=== PATIENT | female | born 1970 | race Hispanic/Latino ===

== ENCOUNTER 2021-09-25 17:21 | Emergency (ER) | payer OTHER ==
[~2021-09-25] VITALS: Ht 154.9 cm; Wt 76.4 kg
[~2021-09-25 17:21] MED LIST: CYCLOBENZAPR10 MG PO; FLEXERIL PO; FLEXERIL5 MG PO; NAPROSYN375 MG PO; NAPROSYN500 MG PO; NO HOME MEDS; PERCOCET 5/325M1 TAB PO; UNKNOWN ALLERGY MED; UNKNOWN ANTIBIOTIC
[2021-09-25 17:33] VITALS: BP 129/75
[2021-09-25 18:10] LABS: URINE BILIRUBIN - DIPSTICK NEGATIVE (NEGATIVE); URINE BLOOD DIPSTICK NEGATIVE (NEGATIVE); URINE COLOR YELLOW; URINE GLUCOSE - DIPSTICK NEGATIVE (NEGATIVE); URINE KETONE NEGATIVE (NEGATIVE); URINE LEUK ESTERASE NEGATIVE (NEGATIVE); URINE PROTEIN - DIPSTICK NEGATIVE (NEG-TRACE); URINE UROBILINOGEN - DIPSTICK 0.2 E.U./dL (0.2)
[2021-09-25 18:11] LABS: URINE NITRITE - DIPSTICK NEGATIVE (Negative)
[2021-09-25 18:56] VITALS: BP 129/75
[2021-09-25] MEDS ORDERED: METHOCARBAMOL500 MG PO (19:56)
[2021-09-25] MEDS ORDERED: NAPROXEN500 MG PO (19:56)
== END 2021-09-25 20:17 | disposition home or self-care (01) | DRG 563 ==
LOC: ED 17:21
PROVIDERS: Nurse Practitioner
DX: S39.012A Strain of muscle, fascia and tendon of lower back, initial encounter (principal); X58.XXXA Exposure to other specified factors, initial encounter; Y93.E9 Activity, other interior property and clothing maintenance; Y99.0 Civilian activity done for income or pay

== ENCOUNTER 2022-07-04 21:07 | Emergency (ER) | payer OTHER ==
[~2022-07-04] VITALS: Ht 154.9 cm; Wt 81.6 kg
[~2022-07-04 21:07] MED LIST changes: +METHOCARBAMOL500 MG PO; +NAPROXEN500 MG PO
[2022-07-04 21:50] LABS: URINE BILIRUBIN - DIPSTICK NEGATIVE (NEGATIVE); URINE BLOOD DIPSTICK NEGATIVE (NEGATIVE); URINE COLOR YELLOW; URINE GLUCOSE - DIPSTICK NEGATIVE (NEGATIVE); URINE KETONE NEGATIVE (NEGATIVE); URINE LEUK ESTERASE NEGATIVE (NEGATIVE); URINE PH 5.5 (4.5-8.0); URINE PROTEIN - DIPSTICK NEGATIVE (NEG-TRACE); URINE SPECIFIC GRAVITY <=1.005; URINE UROBILINOGEN - DIPSTICK 0.2 E.U./dL (0.2)
[2022-07-04 21:54] LABS: URINE NITRITE - DIPSTICK NEGATIVE (Negative)
[2022-07-04] MEDS ORDERED: OXYBUTYNIN CHLOR5 M2 PO (22:07)
[2022-07-04 22:52] VITALS: BP 121/78
== END 2022-07-04 22:53 | disposition home or self-care (01) | DRG 696 ==
LOC: ED 21:07
PROVIDERS: Family Medicine
DX: R30.0 Dysuria (principal)